=== PATIENT | male | born 1965 | race Caucasian/White ===

== ENCOUNTER 2018-08-31 22:40 | Emergency (ER) | payer OTHER ==
[~2018-08-31] VITALS: Ht 167.6 cm; Wt 70.8 kg
[~2018-08-31 22:40] MED LIST: CIPR-262 PO; IBUP-1955 PO
--- NOTE | 2018-08-31 23:24 | NUR ---
FRANCESCA C/O "HAVING PAINFUL URINATION SINCE HAVING A KIDNEY STONE REMOVED 2X WEEKS AGO" -N/V -DIZZY AOX4. AMBULATORY
[2018-08-31 23:34] LABS: APPEARANCE,URINE CLEAR (CLEAR); BILIRUBIN,URINE NEGATIVE (NEGATIVE); BLOOD, URINE NEGATIVE Ery/uL (NEGATIVE); COLOR,URINE ORANGE (YELLOW); KETONES,URINE TRACE (NEGATIVE); LEUKOCYTE ESTERASE ,URINE TRACE (NEGATIVE); NITRITE, URINE POSITIVE (NEGATIVE); PH,URINE 8.5 (5.0-8.0); PROTEIN,URINE 2+ mg/dl (NEGATIVE); UGLUCOSE 1+ mg/dL (NEGATIVE)
[2018-08-31 23:45] LABS: BACTERIA,URINE Few /HPF (None Seen); SQUAMOUS EPITHELIAL CELL,UR Rare /HPF (None Seen)
[2018-09-01] MEDS ORDERED: CIPROFLOXACIN HCL 500 MG TABLET ONE
[2018-09-01] MEDS ORDERED: CIPROFLOXACIN HCL 500 MG TABLET PO ONE
[2018-09-01] MEDS ORDERED: LIDOCAINE 2% JEL UROJET 10 ML MM ONE ×2 (00:45→01:00)
[2018-09-01] MEDS ORDERED: TAMSULOSIN 0.4 MG CAP.SR.24H ONE (01:23)
[2018-09-01] MEDS ORDERED: TAMSULOSIN 0.4 MG CAP.SR.24H PO ONE (01:30)
[2018-09-01] MEDS ORDERED: HYDROCODONE/APAP 5/325MG 1 EACH TABLET ONE (01:50)
[2018-09-01] MEDS ORDERED: HYDROCODONE/APAP 5/325MG 1 EACH TABLET PO ONE (02:00)
[2018-09-01 02:13] VITALS: BP 122/81
== END 2018-09-01 02:16 | disposition home or self-care (01) ==
LOC: ER 22:44
DX: N39.0 Urinary tract infection, site not specified (principal); N40.0 Benign prostatic hyperplasia without lower urinary tract symptoms
CPT/HCPCS: 51702; 81001; 87086; 99284; A6402; J3490; 81000-TC